=== PATIENT | male | born 1980 | race African-American/Black ===

== ENCOUNTER 2018-11-15 06:16 | Emergency (ER) | payer BC ==
[~2018-11-15] VITALS: Ht 193 cm; Wt 16.8 kg
[2018-11-15 06:19] VITALS: BP 160/107
[2018-11-15] MEDS ORDERED: IBUPROFEN 600 MG TABLET. PO ONE (07:00)
--- NOTE | 2018-11-15 13:51 | PHYS DOC ---
Past Medical History Past Medical History: No Pertinent History Past Surgical History: No Surgical History Alcohol Use: Occasionally Drug Use: Marijuana Adult General Chief Complaint Chief Complaint: FOOT INJURY PAIN HPI HPI Patient is a 37 year old -[place] male who presents with chronic right great toe pain is large onion.] Ago. Reports pain with ambulation. Symptoms been ongoing. No history of trauma. Patient has not been evaluated for these symptoms by primary care provider or wirer passenger car. [] Review of Systems Review of Systems Review symptoms as per history of present illness. All other review symptoms are negative. All other systems were reviewed and found to be within normal limits, except as documented in this note. Current Medications Current Medications Current Medications Medications (Trade) Dose Ordered Sig/Isamar Start Time Stop Time Status Last Admin Dose Admin Ibuprofen (Motrin) 600 mg 1X ONCE 11/15/18 07:00 11/15/18 07:00 DC 11/15/18 06:50 600 MG Allergies Allergies Allergies Coded Allergies Type Severity Reaction Last Updated Verified No Known Drug Allergies 11/15/18 No Physical Exam Physical Exam Constitutional: Well developed, well nourished, no acute distress, non-toxic appearance. [] HENT: Normocephalic, atraumatic, bilateral external ears normal, oropharynx moist, no oral exudates, nose normal. [] [] Extremities: Foot, no swelling, redness appreciated, valgus deformity to right great toe with painful/tender bunion. Walks with steady gait[] Neurologic: Alert and oriented X 3, normal motor function, normal sensory function, no focal deficits noted. [] Psychologic: Affect normal, judgement normal, mood normal. [] Current Patient Data Vital Signs Vital Signs Date Time Temp Pulse Resp B/P (MAP) Pulse Ox O2 Delivery O2 Flow Rate FiO2 11/15/18 06:19 98.7 91 18 160/107 (124) 99 Room Air 98.7 EKG EKG [] Radiology/Procedures Radiology/Procedures [] Course & Med Decision Making Course & Med Decision Making Pertinent Labs and Imaging studies reviewed. (See chart for details) [Chronic foot pain, walks with steady gait. Right great toe does not appear to be red, or hot. Courtesy work note offered. Recommendations are ibuprofen, and PCP/podiatry follow-up/evaluation] Lizy Disclaimer Lizy Disclaimer This electronic medical record was generated, in whole or in part, using a voice recognition dictation system. Departure Departure Impression: Primary Impression: Pain, foot, right, chronic Disposition: 01 HOME, SELF-CARE Condition: GOOD Referrals: NO PCP (PCP) NON,STAFF Patient Instructions: Bunion (Hallux Valgus)-SportsMed Additional Instructions: Take ibuprofen for pain with local primary care physician for podiatry (foot doctor) referral. NOLBERTO MELLO DO Nov 15, 2018 13:51
== END 2018-11-15 06:53 | disposition home or self-care (01) ==
LOC: ER 06:16
DX: G89.29 Other chronic pain (principal); M79.674 Pain in right toe(s)
CPT/HCPCS: 99282

== ENCOUNTER 2020-10-23 01:33 | Emergency (ER) | payer BC, OTHER ==
[~2020-10-23] VITALS: Ht 193 cm; Wt 140.1 kg
[2020-10-23] MEDS ORDERED: IV NORMAL SALINE 1000ML BAG 1,000 ML IV ONE (02:15)
--- NOTE | 2020-10-23 02:20 | ED.ADGEN ---
Past Medical History Past Medical History: No Pertinent History Past Surgical History: No Surgical History Smoking Status: Current Some Day Smoker Alcohol Use: Occasionally Drug Use: Marijuana General Adult EDM: Chief Complaint: FEVER HPI: HPI: Patient is a 39 year old male coming in for 5 days of cold symptoms. Complaining of headache, body aches, fever (T-max 102 at home), congestion, productive cough, vomiting, sore throat. Patient denies any sick contacts or new Covid exposures. Did not get his flu vaccine this year. Does not have any past medical history. Took Tamiflu 6-8 hours ago. Denies tobacco or alcohol use. Says he has had decreased appetite and p.o. intake. Review of Systems: Review of Systems: All other systems within normal limits except for as noted in the HPI Current Medications: Current Medications Medications (Trade) Dose Ordered Sig/Isamar Start Time Stop Time Status Last Admin Dose Admin Acetaminophen/ Codeine Phosphate (Tylenol #3) 1 tab 1X ONCE 10/23/20 05:00 10/23/20 05:01 DC 10/23/20 05:28 1 TAB Dexamethasone Sodium Phosphate (Decadron) 10 mg 1X ONCE 10/23/20 03:30 10/23/20 03:31 DC 10/23/20 03:45 10 MG Ketorolac Tromethamine (Toradol 15mg Vial) 15 mg 1X ONCE 10/23/20 02:30 10/23/20 02:31 DC 10/23/20 02:38 15 MG Ondansetron HCl (Zofran) 4 mg 1X ONCE 10/23/20 02:30 10/23/20 02:31 DC 10/23/20 02:38 4 MG Sodium Chloride 1,000 ml @ 1,000 mls/hr 1X ONCE 10/23/20 02:15 10/23/20 03:14 DC 10/23/20 02:38 1,000 MLS/HR Allergies: Allergies: Allergies Coded Allergies Type Severity Reaction Last Updated Verified No Known Drug Allergies 11/15/18 No Physical Exam: PE: Constitutional: Well developed, well nourished, no acute distress, non-toxic appearance. [] HENT: Normocephalic, atraumatic, bilateral external ears normal, nose normal. [] Eyes: PERRLA, conjunctiva normal, no discharge. [] Neck: No rigidity, supple, no stridor. [] Cardiovascular: Echocardiac, regular rhythm, brisk cap refill [] Lungs & Thorax: Non labored symmetric respirations, bilateral coarse breath sounds, worse on the right [] Abdomen: Soft, nondistended. Skin: Warm, dry, no erythema, no rash. [] Back: No tenderness, no CVA tenderness. [] Extremities: No deformities, range of motion grossly intact, no lower extremity edema [] Neurologic: Alert and oriented X 3, no focal deficits noted. [] Psychologic: Affect normal, judgement normal, mood normal. [] Current Patient Data: Labs: Laboratory Tests Test 10/23/20 02:05 10/23/20 02:24 10/23/20 02:25 White Blood Count 8.2 x10^3/uL (4.0-11.0) Red Blood Count 4.53 x10^6/uL (4.30-5.70) Hemoglobin 15.2 g/dL (13.0-17.5) Hematocrit 43.1 % (39.0-53.0) Mean Corpuscular Volume 95 fL (79-100) Mean Corpuscular Hemoglobin 34 pg (25-35) Mean Corpuscular Hemoglobin Concent 35 g/dL (31-37) Red Cell Distribution Width 12.7 % (11.5-14.5) Platelet Count 116 x10^3/uL (140-400) L Neutrophils (%) (Auto) 74 % (31-73) H Lymphocytes (%) (Auto) 17 % (24-48) L Monocytes (%) (Auto) 8 % (0-9) Eosinophils (%) (Auto) 0 % (0-3) Basophils (%) (Auto) 1 % (0-3) Neutrophils # (Auto) 6.1 x10^3/uL (1.8-7.7) Lymphocytes # (Auto) 1.4 x10^3/uL (1.0-4.8) Monocytes # (Auto) 0.7 x10^3/uL (0.0-1.1) Eosinophils # (Auto) 0.0 x10^3/uL (0.0-0.7) Basophils # (Auto) 0.1 x10^3/uL (0.0-0.2) D-Dimer (Katya) 0.39 ug/mlFEU (0.00-0.50) Sodium Level 134 mmol/L (136-145) L Potassium Level 3.9 mmol/L (3.5-5.1) Chloride Level 98 mmol/L (98-107) Carbon Dioxide Level 26 mmol/L (21-32) Anion Gap 10 (6-14) Blood Urea Nitrogen 14 mg/dL (8-26) Creatinine 1.4 mg/dL (0.7-1.3) H Estimated GFR (Cockcroft-Gault) 68.3 BUN/Creatinine Ratio 10 (6-20) Glucose Level 107 mg/dL (70-99) H Lactic Acid Level 0.7 mmol/L (0.4-2.0) Calcium Level 9.1 mg/dL (8.5-10.1) Total Bilirubin 0.8 mg/dL (0.2-1.0) Aspartate Amino Transferase (AST) 58 U/L (15-37) H Alanine Aminotransferase (ALT) 82 U/L (16-63) H Alkaline Phosphatase 37 U/L (46-116) L Troponin I Quantitative < 0.017 ng/mL (0.000-0.055) DO-Spv-G-Type Natriuretic Peptide 6 pg/mL (0-124) Total Protein 8.1 g/dL (6.4-8.2) Albumin 3.7 g/dL (3.4-5.0) Albumin/Globulin Ratio 0.8 (1.0-1.7) L Influenza Type A Antigen Negative (NEGATIVE) Influenza Type B Antigen Negative (NEGATIVE) Urine Collection Type Unknown Urine Color Yellow Urine Clarity Clear Urine pH 6.5 (<5.0-8.0) Urine Specific Lester 1.020 (1.000-1.030) Urine Protein 100 mg/dL (NEG-TRACE) Urine Glucose (UA) Negative mg/dL (NEG) Urine Ketones (Stick) Negative mg/dL (NEG) Urine Blood Negative (NEG) Urine Nitrite Negative (NEG) Urine Bilirubin Negative (NEG) Urine Urobilinogen Dipstick 1.0 mg/dL (0.2 mg/dL) Urine Leukocyte Esterase Negative (NEG) Urine RBC 0 /HPF (0-2) Urine WBC 0 /HPF (0-4) Urine Squamous Epithelial Cells Occ /LPF Urine Bacteria 0 /HPF (0-FEW) Laboratory Tests 10/23/20 02:05 Laboratory Tests 10/23/20 02:05 Vital Signs: Vital Signs Date Time Temp Pulse Resp B/P (MAP) Pulse Ox O2 Delivery O2 Flow Rate FiO2 10/23/20 05:28 95 10/23/20 05:19 82 22 161/79 (106) Room Air 10/23/20 02:49 10.0 10/23/20 01:35 99.7 99.7 EKG: EKG: Sinus tachycardia, heart rate 102 bpm, normal axis, no ST elevation reported, T waves unremarkable [] Heart Score: Risk Factors: Risk Factors: DM, Current or recent (<one month) smoker, HTN, HLP, family history of CAD, obesity. Risk Scores: Score 0 - 3: 2.5% MACE over next 6 weeks - Discharge Home Score 4 - 6: 20.3% MACE over next 6 weeks - Admit for Clinical Observation Score 7 - 10: 72.7% MACE over next 6 weeks - Early Invasive Strategies Radiology/Procedures: Radiology/Procedures: EP interpretation, no consolidation [] Course & Med Decision Making: Course & Med Decision Making Pertinent Labs and Imaging studies reviewed. (See chart for details) Patient with good O2 sats, improved with fluids. Discussed treatment for sinusitis. [] Dragon Disclaimer: Dragon Disclaimer: This electronic medical record was generated, in whole or in part, using a voice recognition dictation system. Departure Departure Impression: Primary Impression: Upper respiratory infection Disposition: 01 DC HOME SELF CARE/HOMELESS Condition: STABLE Referrals: NO PCP (PCP) Patient Instructions: Sinusitis Additional Instructions: You have been tested for or diagnosed with COVID-19. It is an infection caused by a new type of coronavirus. COVID-19 will cause cold-like or mild flu symptoms in most. It can cause more severe symptoms like problems breathing in some. There is no treatment for COVID-19. The body will clear the infection over time. Self-care will help to ease discomfort. Steps to Take: Self-Care Rest as needed. Healthy habits may help you feel better. Steps include: Choose healthy foods including fruits and vegetables. Drink water throughout the day. Get plenty of sleep each night. If you smoke, try to quit. It may ease breathing. Avoid alcohol. Keep Others Healthy The virus can spread to others. Droplets are released every time you sneeze or cough. The droplets can get into the mouth, nose, or eyes of people near you and lead to infection. To lower the chances of spreading COVID-19 to others: Stay at home until your doctor has said it is safe to leave. If you tested positive this will mean staying isolated until both of the following are true: At least 7 days have passed since the start of illness. You are free of fever for at least 72 hours without the use of medicine. During this time: - Avoid public areas, events, or transportation. Do not return to work or school until your doctor has said it is safe to do so. - Call ahead if you need to go to a medical center. Let them know you may have COVID-19. It will help them guide you where to go. They may also ask you to wear a facemask when you come to the office. - If you call for emergency medical services, let them know you may have COVID- 19. While at home: - Try to avoid close contact with others. Stay about 6 feet away. - If possible, spend most of your time in a separate room from others. - Use a face mask if you will be in close contact with others such as sharing a room or vehicle. - Have someone wipe down common surfaces in the home. Use household booth usher every day on areas like doorknobs, counters, or sinks. - Cough or sneeze into a tissue. Throw the tissue away right after use. If a tissue is not available, cough or sneeze into your elbow. - Wash your hands often. Wash them after sneezing or coughing. Use soap and water and wash for at least 20 seconds. Alcohol based hand street light lamp cleaner can be used if soap and water is not available. - Do not prepare food for others. Avoid sharing personal items like forks, spoons, or toothbrushes. - Avoid close contact with pets while you are sick. There is no evidence of the virus passing to pets. This is a safety step until more is known about this virus. Isolation can be frustrating. Social interaction can help. Keep in touch with friends and family through phone and tech options. You can still interact with others in your home, just keep a safe distance of about 6 feet. Follow-up: Your doctors office will check in with you to see if there are any changes in your health. You may be asked to keep track of symptoms to share with them. They will also let you know when you are clear to be in public again. Problems to Look Out For: Contact your doctor if your recovery is not going as you expect. Get emergency care if you have problems such as: - Trouble breathing - Nonstop chest pain or pressure - Changes in awareness, confusion, or problems waking - Lips or face have bluish color - Worsening of symptoms If you think you have an emergency, call for emergency medical services right away. As taken from [facility] Acetaminophen With Codeine (ACETAMINOPHEN-COD #3 TABLET) 1 Each Tablet 1 TAB PO PRN Q6HRS PRN for COUGH for 3 Days, #10 TAB Prov: SHERI ZHOU MD 10/23/20 Ondansetron (ONDANSETRON ODT) 4 Mg Tab.rapdis 1 TAB PO PRN Q6-8HRS PRN for NAUSEA for 3 Days, #16 TAB Prov: SHERI ZHOU MD 10/23/20 Doxycycline Hyclate (DOXYCYCLINE HYCLATE) 100 Mg Capsule 1 CAP PO BID for antibiotic for 7 Days, #14 CAP take with food Prov: SHERI ZHOU MD 10/23/20 SHERI ZHOU MD Oct 23, 2020 02:20
[2020-10-23 02:27] LABS: BASO # 0.1 x10^3/uL (0.0-0.2); BASO % 1 % (0-3); EOS % 0 % (0-3); HEMATOCRIT 43.1 % (39.0-53.0); HEMOGLOBIN 15.2 g/dL (13.0-17.5); LYMPH # 1.4 x10^3/uL (1.0-4.8); LYMPH % 17 % (24-48); MEAN CORPUSCULAR HEMOGLOBIN 34 pg (25-35); MEAN CORPUSCULAR HGB CONC 35 g/dL (31-37); MEAN CORPUSCULAR VOLUME 95 fL (79-100); MONO # 0.7 x10^3/uL (0.0-1.1); MONO % 8 % (0-9); NEUT # 6.1 x10^3/uL (1.8-7.7); NEUT % 74 % (31-73); PLATELET COUNT 116 x10^3/uL (140-400); RED BLOOD COUNT 4.53 x10^6/uL (4.30-5.70); RED CELL DISTRIBUTION WIDTH 12.7 % (11.5-14.5); WHITE BLOOD COUNT 8.2 x10^3/uL (4.0-11.0)
[2020-10-23] MEDS ORDERED: ONDANSETRON PF 4 MG/2 ML VIAL. IVP ONE (02:30)
[2020-10-23] MEDS ORDERED: KETOROLAC 15 MG/ML VIAL. IVP ONE (02:30)
[2020-10-23 02:35] LABS: BILIRUBIN,URINE NEGATIVE (NEG); CLARITY,URINE CLEAR; COLOR,URINE YELLOW; NITRITE,URINE NEGATIVE (NEG); PH,URINE 6.5 (<5.0-8.0); PROTEIN,URINE 100 mg/dL (NEG-TRACE)
[2020-10-23 02:37] LABS: CALCIUM 9.1 mg/dL (8.5-10.1); CREATININE 1.4 mg/dL (0.7-1.3); GFR 68.3; POTASSIUM 3.9 mmol/L (3.5-5.1)
[2020-10-23 02:41] LABS: BACTERIA,URINE 0 /HPF (0-FEW); RBC,URINE 0 /HPF (0-2); WBC,URINE 0 /HPF (0-4)
[2020-10-23 02:43] LABS: ALBUMIN 3.7 g/dL (3.4-5.0); ALBUMIN/GLOBULIN RATIO 0.8 (1.0-1.7); TOTAL BILIRUBIN 0.8 mg/dL (0.2-1.0); TOTAL PROTEIN 8.1 g/dL (6.4-8.2)
[2020-10-23 02:51] LABS: INFLUENZA A PATIENT NEGATIVE (NEGATIVE); INFLUENZA B PATIENT NEGATIVE (NEGATIVE)
[2020-10-23] MEDS ORDERED: DEXAMETHASONE SOD PHOS 20 MG/5 ML VIAL. IV ONE (03:30)
[2020-10-23] MEDS ORDERED: ACETAMINOPHEN/CODEINE 300/30MG TABLET. PO ONE (05:00)
[2020-10-23] MEDS ORDERED: ONDA4TAB12 PO (05:04)
[2020-10-23] MEDS ORDERED: DOXY100C2 PO (05:04)
[2020-10-23] MEDS ORDERED: ACET1TAB33 PO (05:04)
--- NOTE | 2020-10-23 05:09 | EKG ---
[facility] [address] [place] [address] Test Date: 2020-10-23 Test Time: 02:17:55 Pat Name: GHAZALA FAM Department: Room: Gender: M [employer]: : [id number] Requested By: SHERI ZHOU Order Number: [id number] Reading MD: Measurements Intervals [place] Rate: 102 P: 44 VA: 142 QRS: 28 QRSD: 98 T: 37 QT: 342 QTc: 450 Interpretive Statements SINUS TACHYCARDIA R-S TRANSITION ZONE IN V LEADS DISPLACED TO THE LEFT OTHERWISE NORMAL ECG RI6.01 No previous ECG available for comparison
[2020-10-23 05:19] VITALS: BP 161/79
--- NOTE | 2020-10-23 06:39 | RAD ---
INDICATION: Reason: hypoxic / Spl. Instructions: / History: COMPARISON: None. FINDINGS: Single view of the chest obtained Cardiac silhouette is enlarged. Mild interstitial prominence bilaterally with hypoexpansion. IMPRESSION: * Enlarged cardiac Silhouette which can be seen with cardiomegaly and/or pericardial effusion. * Hypoexpanded lungs with mild interstitial prominence. This could be secondary to vascular crowding from hypoexpansion but mild pulmonary vascular congestion or interstitial infiltrate is not excluded given the mild prominence Electronically signed by: Wilder Hendricks MD (10/23/2020 6:37 AM) [id number]
--- NOTE | 2020-10-24 15:20 | NUR ---
IP: Informed pt of positive COVID test and the need to quarantine for 10 days. Pt verbalized understanding.
== END 2020-10-23 05:30 | disposition home or self-care (01) ==
LOC: ER 01:33
DX: J06.9 Acute upper respiratory infection, unspecified (principal); Z20.828 Contact with and (suspected) exposure to other viral communicable diseases; R51.9 Headache, unspecified; R11.10 Vomiting, unspecified; R05 Cough; R09.81 Nasal congestion; F12.90 Cannabis use, unspecified, uncomplicated; Z87.891 Personal history of nicotine dependence
CPT/HCPCS: 36415; 71045; 80053; 81001; 83605; 83880; 84484; 85025; 85379; 87804; 93005; 96361; 96374; 96375; 99285; J1100; J1885; J2405; J7030; U0003

== ENCOUNTER 2020-11-05 15:52 | Emergency (ER) | payer OTHER ==
[~2020-11-05] VITALS: Ht 193 cm; Wt 131.8 kg
[~2020-11-05 15:52] MED LIST: ACET1TAB33 PO; DOXY100C2 PO; ONDA4TAB12 PO
[2020-11-05] MEDS ORDERED: methylPREDNISolone SOD SUCC PF 125 MG/2 ML VIAL. IV ONE (16:30)
[2020-11-05] MEDS ORDERED: ORPHENADRINE CITRATE 60 MG/2 ML VIAL. IM ONE (16:30)
[2020-11-05] MEDS ORDERED: KETOROLAC 30 MG/ML VIAL. IVP ONE (16:30)
--- NOTE | 2020-11-05 16:33 | PHYS DOC ---
Past Medical History Past Medical History: No Pertinent History (SAUL HDZ DO) Past Surgical History: No Surgical History (SAUL HDZ DO) Smoking Status: Former Smoker Alcohol Use: Occasionally Drug Use: Marijuana (SAUL HDZ DO) General Adult EDM: Chief Complaint: OTHER COMPLAINTS HPI: HPI: Patient is a 39 year old male who present to ER for evaluation of nonproductive cough, right shoulder pain, right neck pain for 3 days. Patient denies any injury. Patient right-sided neck is stiff, the pain radiated to the right shoulder, hurt when he moves his head. Patient denies any fever. Patient denies any trouble breathing, no left-sided chest pain. Patient complained of body ache and muscle ache. Patient was seen here about October 22 due to cough and fever, he was tested positive for COVID-19.. Patient has no history of coronary disease or blood clot disorder. Patient had no history of diabetic. (SAUL HDZ DO) Review of Systems: Review of Systems: Constitutional: Denies fever or chills. [] Eyes: Denies change in visual acuity. [] HENT: Denies nasal congestion or sore throat. [] Respiratory: Denies cough or shortness of breath. [] Cardiovascular: Denies chest pain or edema. [] GI: Denies abdominal pain, nausea, vomiting, bloody stools or diarrhea. [] : Denies dysuria. [] Musculoskeletal: Positive for right-sided neck pain, right shoulder pain, body ache and joint pain. Integument: Denies rash. [] Neurologic: Denies headache, focal weakness or sensory changes. [] Endocrine: Denies polyuria or polydipsia. [] Lymphatic: Denies swollen glands. [] Psychiatric: Denies depression or anxiety. [] (SAUL HDZ DO) Heart Score: Risk Factors: Risk Factors: DM, Current or recent (<one month) smoker, HTN, HLP, family history of CAD, obesity. Risk Scores: Score 0 - 3: 2.5% MACE over next 6 weeks - Discharge Home Score 4 - 6: 20.3% MACE over next 6 weeks - Admit for Clinical Observation Score 7 - 10: 72.7% MACE over next 6 weeks - Early Invasive Strategies (SAUL HDZ DO) Allergies: Allergies: Allergies Coded Allergies Type Severity Reaction Last Updated Verified No Known Drug Allergies 1/31/19 No (SAUL HDZ DO) Physical Exam: PE: Constitutional: Well developed, well nourished, no acute distress, non-toxic appearance. [] HENT: Normocephalic, atraumatic, bilateral external ears normal, oropharynx moist, no oral exudates, nose normal. [] Eyes: PERRLA, EOMI, conjunctiva normal, no discharge. [] Neck: Normal range of motion, no tenderness, supple, no stridor. [] Cardiovascular:Heart rate regular rhythm, no murmur [] Lungs & Thorax: Bilateral breath sounds clear to auscultation [] Abdomen: Bowel sounds normal, soft, no tenderness, no masses, no pulsatile masses. [] Skin: Warm, dry, no erythema, no rash. [] Back: No tenderness, no CVA tenderness. [] Extremities: No tenderness, no cyanosis, no clubbing, ROM intact, no edema. [] Neurologic: Alert and oriented X 3, normal motor function, normal sensory fun ction, no focal deficits noted. [] Psychologic: Affect normal, judgement normal, mood normal. [] (SAUL HDZ DO) Current Patient Data: Labs: Current Medications Medications (Trade) Dose Ordered Sig/Isamar Route PRN Reason Start Time Stop Time Status Last Admin Dose Admin Ketorolac Tromethamine (Toradol 30mg Vial) 30 mg 1X ONCE IVP 11/05/20 16:30 11/05/20 16:36 DC 11/05/20 17:26 Orphenadrine Citrate (Norflex) 60 mg 1X ONCE IM 11/05/20 16:30 11/05/20 16:36 DC 11/05/20 17:15 Methylprednisolone Sodium Succinate (SOLU-Medrol 125MG VIAL) 125 mg 1X ONCE IV 11/05/20 16:30 11/05/20 16:36 DC 11/05/20 17:28 (SAUL HDZ DO) EKG: EKG: EKG was done at 1708, heart rate of 80 bpm, sinus rhythm, no ST segment elevatio n. (SAUL HDZ DO) Radiology/Procedures: Radiology/Procedures: [] (SAUL HDZ DO) Radiology/Procedures: IMAGING REPORT Signed PATIENT: GHAZALA FAM ACCOUNT: [id number] : 1980 LOCATION: ER AGE: 39 SEX: M EXAM STATUS: REG ER ORD. PHYSICIAN: SAUL HDZ DO REASON: chest pain PROCEDURE: CHEST AP ONLY INDICATION: Reason: chest pain / Spl. Instructions: / History: COMPARISON: October 23, 2020 FINDINGS: Single view of chest obtained. Cardiomediastinal silhouette is similar to prior. There is again some mild interstitial prominence with some haziness at the left lung base which appears slightly increased. IMPRESSION: * Mild haziness at left lung base. This is a common location for atelectasis but early infiltrate is not excluded. Electronically signed by: Yaneth Luther MD (11/05/2020 5:58 PM) [id number] DICTATED and SIGNED BY: YANETH LUTHER MD DATE: 11/05/20 [id number] IMAGING REPORT Signed PATIENT: GHAZALA FAM ACCOUNT: [id number] : 1980 LOCATION: ER AGE: 39 SEX: M EXAM STATUS: REG ER ORD. PHYSICIAN: SAUL HDZ DO REASON: chest pain PROCEDURE: CERVICAL SPINE 2-3V INDICATION: Reason: chest pain / Spl. Instructions: / History: COMPARISON: None. IMPRESSION: Cervical spine: 4 views obtained. Mild degenerative changes with early osteophyte formation. No acute fracture or dislocation is seen. Electronically signed by: Yaneth Luther MD (11/05/2020 5:56 PM) [id number] DICTATED and SIGNED BY: YANETH LUTHER MD DATE: 11/05/20 [id number] (MARIELLE BECKMAN DO) Course & Med Decision Making: Course & Med Decision Making Pertinent Labs and Imaging studies reviewed. (See chart for details) Patient is a 39-year-old male who presented to ER for evaluation of body aches, flulike symptoms, neck pain, neck right-sided shoulder pain, patient care is being endorsed to incoming physician at shift change Dr. Beckman. (SAUL HDZ DO) Course & Med Decision Making COVID-19 CRITERIA: The patient was evaluated during the global COVID-19 pandemic, and that diagnosis was suspected/considered upon their initial presentation. Their evaluation, treatment and testing was consistent with current guidelines for patients who present with complaints or symptoms that may be related to COVID-19. A patient who complains of right paraspinal cervical pain and right trapezius pain, worsened when looking to the right or extending his right arm, consistent with torticollis versus musculoskeletal injury/spasm. CK mildly elevated on labs, normal renal function. Drug screen positive for marijuana. LFTS incr eased-could be covid related, has broad ddx. No leukopenia. I do not suspect patient's pain is related to Covid. Will DC home with NSAIDs and muscle relaxers, conservative management. Strict ED return precautions were given for stroke symptoms, neurologic deficits, dyspnea or chest pain. Encouraged urgent outpatient follow-up with PMD. Life-threatening processes were considered but are low suspicion at this time, given history, physical exam and ED workup. Pt was educated on all prescription medications and adverse effects. All patient's questions were answered and pt was stable at time of discharge. Life/limb-threatening differential includes but is not limited to, bandar's angina, peritonsillar abscess, retropharyngeal abscess, epiglottitis, bacterial tracheitis, uvulitis, sepsis, mastoiditis, traumatic injury, carotid/vertebral dissection, intracranial aneurysms or neurologic process. I spoken with the patient and her caregivers. I explained the patient's condition, diagnoses and treatment plan based on the information available to me at this time. I have answered the patient and her caregiver's questions and addressed any concerns. The patient and her caregivers have a good understanding of patient's diagnosis, condition and treatment plan as can be expected at this point. Vital signs have been stable. Patient's condition is stable and appropriate for discharge from the emergency department. Patient will pursue further outpatient evaluation with primary care physician or other designated or consulting physician as outlined in the discharge instructions. The patient and/or caregivers are agreeable to this plan of care and follow-up instructions have been explained in detail. The patient and/or caregivers have received these instructions in written form and have expressed an understanding of the discharge instructions. The patient and/or caregivers are aware that any significant change of condition or worsening of symptoms should prompt immediate return to this or the closest emergency department or call to 911. (VOMARIELLE MERCHANT DO) Lizy Disclaimer: Lizy Disclaimer: This electronic medical record was generated, in whole or in part, using a voice recognition dictation system. (SAUL HDZ DO) Departure Departure Impression: Primary Impression: COVID-19 virus infection Additional Impressions: Torticollis, acute Marijuana abuse Disposition: 01 DC HOME SELF CARE/HOMELESS Condition: STABLE Referrals: NO PCP (PCP) FOLLOW UP WITH FAMILY MEDICINE: In the next 10 days to establish care & repeat LFTs Family Medicine Address: [address] [place] [address], [facility] [address] [place] [address] Patient Instructions: Musculoskeletal Pain, Torticollis, Acute Additional Instructions: Return to ED immediately if your oxygen level drops below 90% (purchase a pulse oximetry at a medical supply store), difficulties breathing including rapid breathing or increased work of breathing (skin sucking under ribs), chest pain or stroke-like symptoms (facial droop, speech changes, arm/leg weakness). You have been tested for or diagnosed with COVID-19. It is an infection caused by a new type of coronavirus. COVID-19 will cause cold-like or mild flu symptoms in most. It can cause more severe symptoms like problems breathing in some. There is no treatment for COVID-19. The body will clear the infection over time. Self-care will help to ease discomfort. Steps to Take: Self-Care Rest as needed. Healthy habits may help you feel better. Steps include: Choose healthy foods including fruits and vegetables. Drink water throughout the day. Get plenty of sleep each night. If you smoke, try to quit. It may ease breathing. Avoid alcohol. Keep Others Healthy The virus can spread to others. Droplets are released every time you sneeze or cough. The droplets can get into the mouth, nose, or eyes of people near you and lead to infection. To lower the chances of spreading COVID-19 to others: Stay at home until your doctor has said it is safe to leave. If you tested positive this will mean staying isolated until both of the following are true: At least 7 days have passed since the start of illness. You are free of fever for at least 72 hours without the use of medicine. During this time: - Avoid public areas, events, or transportation. Do not return to work or school until your doctor has said it is safe to do so. - Call ahead if you need to go to a medical center. Let them know you may have COVID-19. It will help them guide you where to go. They may also ask you to wear a facemask when you come to the office. - If you call for emergency medical services, let them know you may have COVID- 19. While at home: - Try to avoid close contact with others. Stay about 6 feet away. - If possible, spend most of your time in a separate room from others. - Use a face mask if you will be in close contact with others such as sharing a room or vehicle. - Have someone wipe down common surfaces in the home. Use household air antisubmarine officer every day on areas like doorknobs, counters, or sinks. - Cough or sneeze into a tissue. Throw the tissue away right after use. If a tissue is not available, cough or sneeze into your elbow. - Wash your hands often. Wash them after sneezing or coughing. Use soap and water and wash for at least 20 seconds. Alcohol based hand smoking pipes cleaner can be used if soap and water is not available. - Do not prepare food for others. Avoid sharing personal items like forks, spoons, or toothbrushes. - Avoid close contact with pets while you are sick. There is no evidence of the virus passing to pets. This is a safety step until more is known about this virus. Isolation can be frustrating. Social interaction can help. Keep in touch with friends and family through phone and tech options. You can still interact with others in your home, just keep a safe distance of about 6 feet. Follow-up: Your doctors office will check in with you to see if there are any changes in your health. You may be asked to keep track of symptoms to share with them. They will also let you know when you are clear to be in public again. Problems to Look Out For: Contact your doctor if your recovery is not going as you expect. Get emergency care if you have problems such as: - Trouble breathing - Nonstop chest pain or pressure - Changes in awareness, confusion, or problems waking - Lips or face have bluish color - Worsening of symptoms If you think you have an emergency, call for emergency medical services right away. As taken from [facility] Scripts Ibuprofen (IBUPROFEN) 600 Mg Tablet 600 MG PO PRN Q6HRS PRN for PAIN, #20 TAB take with food or milk Prov: MARIELLE BECKMAN DO 11/05/20 Cyclobenzaprine Hcl (CYCLOBENZAPRINE HCL) 10 Mg Tablet 1 TAB PO TID, #21 TAB Prov: MARIELLE BECKMAN DO 11/05/20 SAUL HDZ DO Nov 05, 2020 16:33 MARIELLE BECKMAN DO Nov 05, 2020 18:18
[2020-11-05 17:56] LABS: BASO % 0 % (0-3); EOS # 0.1 x10^3/uL (0.0-0.7); EOS % 1 % (0-3); HEMATOCRIT 39.4 % (39.0-53.0); HEMOGLOBIN 13.4 g/dL (13.0-17.5); LYMPH # 2.2 x10^3/uL (1.0-4.8); LYMPH % 20 % (24-48); MEAN CORPUSCULAR HEMOGLOBIN 33 pg (25-35); MEAN CORPUSCULAR HGB CONC 34 g/dL (31-37); MEAN CORPUSCULAR VOLUME 96 fL (79-100); MONO # 0.8 x10^3/uL (0.0-1.1); MONO % 7 % (0-9); NEUT # 8.3 x10^3/uL (1.8-7.7); NEUT % 73 % (31-73); PLATELET COUNT 464 x10^3/uL (140-400); RED BLOOD COUNT 4.11 x10^6/uL (4.30-5.70); RED CELL DISTRIBUTION WIDTH 13.1 % (11.5-14.5); WHITE BLOOD COUNT 11.4 x10^3/uL (4.0-11.0)
--- NOTE | 2020-11-05 17:59 | RAD ---
INDICATION: Reason: chest pain / Spl. Instructions: / History: COMPARISON: None. IMPRESSION: Cervical spine: 4 views obtained. Mild degenerative changes with early osteophyte formation. No acute fracture or dislocation is seen. Electronically signed by: Wilder Hendricks MD (11/05/2020 5:56 PM) [id number]
--- NOTE | 2020-11-05 18:00 | RAD ---
INDICATION: Reason: chest pain / Spl. Instructions: / History: COMPARISON: October 23, 2020 FINDINGS: Single view of chest obtained. Cardiomediastinal silhouette is similar to prior. There is again some mild interstitial prominence with some haziness at the left lung base which appea rs slightly increased. IMPRESSION: * Mild haziness at left lung base. This is a common location for atelectasis but early infiltrate is not excluded. Electronically signed by: Wilder Hendricks MD (11/05/2020 5:58 PM) [id number]
[2020-11-05 18:03] LABS: CALCIUM 9.6 mg/dL (8.5-10.1); CREATININE 1.3 mg/dL (0.7-1.3); GFR 74.4; POTASSIUM 4.7 mmol/L (3.5-5.1)
[2020-11-05 18:09] LABS: ALBUMIN 3.3 g/dL (3.4-5.0); ALBUMIN/GLOBULIN RATIO 0.8 (1.0-1.7); MAGNESIUM 2.3 mg/dL (1.8-2.4); TOTAL BILIRUBIN 0.5 mg/dL (0.2-1.0); TOTAL PROTEIN 7.5 g/dL (6.4-8.2)
[2020-11-05 18:38] VITALS: BP 136/94
[2020-11-05 19:05] LABS: BARBITURATES NEG (NEG); BENZODIAZEPINES NEG (NEG); CANNABINOIDS POS (NEG); COCAINE NEG (NEG); METHADONE NEG (NEG); OPIATES NEG (NEG); PHENCYCLIDINE NEG (NEG)
[2020-11-05 19:09] LABS: AMPHETAMINE/METHAMPHETAMINE NEG (NEG)
[2020-11-05] MEDS ORDERED: diazePAM 5 MG TABLET PO ONE (19:15)
[2020-11-05] MEDS ORDERED: IBUP-1007 PO (20:06)
[2020-11-05] MEDS ORDERED: CYCL10TA2 PO (20:06)
--- NOTE | 2020-11-10 15:27 | EKG ---
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
== END 2020-11-05 20:37 | disposition home or self-care (01) ==
LOC: ER 15:52
DX: U07.1 COVID-19 (principal); M43.6 Torticollis; F12.90 Cannabis use, unspecified, uncomplicated; R05 Cough; M25.511 Pain in right shoulder; M54.2 Cervicalgia; Z87.891 Personal history of nicotine dependence
CPT/HCPCS: 36415; 71045; 72040; 80053; 80307; 82550; 83690; 83735; 83880; 84484; 85025; 96372; 96374; 96375; 99285; J1885; J2360; J2930; 93005

== ENCOUNTER 2020-11-07 10:13 | Emergency (ER) | payer OTHER ==
[~2020-11-07] VITALS: Ht 193 cm; Wt 139.7 kg
[~2020-11-07 10:13] MED LIST changes: +CYCL10TA2 PO; +IBUP-1007 PO
[2020-11-07] MEDS ORDERED: KETOROLAC 30 MG/ML VIAL. IV ONE (12:00)
[2020-11-07] MEDS ORDERED: HYDROmorphone 2 MG/ML VIAL IVP ONE (12:00)
[2020-11-07] MEDS ORDERED: ORPHENADRINE CITRATE 60 MG/2 ML VIAL. IV ONE (12:00)
[2020-11-07] MEDS ORDERED: methylPREDNISolone SOD SUCC PF 125 MG/2 ML VIAL. IV ONE (12:00)
--- NOTE | 2020-11-07 12:10 | ED.ADGEN ---
Past Medical History Past Medical History: Other Additional Past Medical Histor: COVID 19 Past Surgical History: No Surgical History Smoking Status: Never Smoker Alcohol Use: Occasionally Drug Use: Marijuana General Adult EDM: Chief Complaint: NECK PAIN HPI: HPI: Patient is a 39 year old AA male who present to ER for evaluation of continued R shoulder pain and R neck pain for about the last week. Patient denies any known injury, or heavy lifting. He reports that his neck feels stiff and that the pain shoots to the right shoulder, the pain increases when he moves his head. Patient denies any fever, numbness, tingling, weakness, shortness of breath, chest pain, palpitations, nausea, vomiting, or back pain. Patient reports that he tested positive for COVID 19 on 10/23/19 and has had myalgias and body aches since then. He denies any medical or surgical history, he denies any recent travel. He currently rates his pain a 10/10 on the pain scale, he has been taking the ibuprofen and flexeril as previously prescribe with no benefit from the medications. Review of Systems: Review of Systems: Complete ROS is negative unless otherwise noted in HPI. Current Medications: Current Medications Medications (Trade) Dose Ordered Sig/Isamar Start Time Stop Time Status Last Admin Dose Admin Acetaminophen/ Hydrocodone Bitart (Lortab 5/325) 1 tab 1X ONCE 11/07/20 15:15 11/07/20 15:16 DC 11/07/20 15:42 1 TAB Hydromorphone HCl (Dilaudid) 1 mg 1X ONCE 11/07/20 12:00 11/07/20 12:01 DC 11/07/20 12:19 1 MG Info (CONTRAST GIVEN -- Rx MONITORING) 1 each PRN DAILY PRN 11/07/20 14:30 11/07/20 16:21 DC Iohexol (Omnipaque 350 Mg/ml) 100 ml 1X ONCE 11/07/20 14:30 11/07/20 14:31 DC 11/07/20 14:53 100 ML Ketorolac Tromethamine (Toradol 30mg Vial) 30 mg 1X ONCE 11/07/20 12:00 11/07/20 12:01 DC 11/07/20 12:11 30 MG Methylprednisolone Sodium Succinate (SOLU-Medrol 125MG VIAL) 125 mg 1X ONCE 11/07/20 12:00 11/07/20 12:01 DC 11/07/20 12:05 125 MG Orphenadrine Citrate (Norflex) 60 mg 1X ONCE 11/07/20 12:00 11/07/20 12:01 DC 11/07/20 12:09 60 MG Sodium Chloride 1,000 ml @ 1,000 mls/hr 1X ONCE 11/07/20 13:00 11/07/20 13:59 DC 11/07/20 13:18 1,000 MLS/HR Allergies: Allergies: Allergies Coded Allergies Type Severity Reaction Last Updated Verified No Known Drug Allergies 11/07/20 No Physical Exam: PE: See Above Constitutional: Well developed, well nourished, no acute distress, non-toxic appearance, obese. [] HENT: Normocephalic, atraumatic, bilateral external ears normal, nose normal. [] Eyes: PERRLA, EOMI, conjunctiva normal, no discharge. [] Neck: Normal range of motion, no bony TTP, crepitus, step off, or obvious deformity; R cervical paraspinal TTP, no stridor. [] Cardiovascular:Heart rate regular rhythm Lungs & Thorax: Respirations even and unlabored, no retractions, no respiratory distress Skin: Warm, dry, no erythema, no rash. [] Extremities: No cyanosis, ROM intact, no edema. [] Neurologic: Alert and oriented X 3, no focal deficits noted. [] Psychologic: Affect normal, judgement normal, mood normal. [] Current Patient Data: Labs: Laboratory Tests Test 11/07/20 12:00 White Blood Count 9.2 x10^3/uL (4.0-11.0) Red Blood Count 3.96 x10^6/uL (4.30-5.70) L Hemoglobin 13.1 g/dL (13.0-17.5) Hematocrit 38.4 % (39.0-53.0) L Mean Corpuscular Volume 97 fL (79-100) Mean Corpuscular Hemoglobin 33 pg (25-35) Mean Corpuscular Hemoglobin Concent 34 g/dL (31-37) Red Cell Distribution Width 13.3 % (11.5-14.5) Platelet Count 391 x10^3/uL (140-400) Neutrophils (%) (Auto) 67 % (31-73) Lymphocytes (%) (Auto) 25 % (24-48) Monocytes (%) (Auto) 7 % (0-9) Eosinophils (%) (Auto) 0 % (0-3) Basophils (%) (Auto) 1 % (0-3) Neutrophils # (Auto) 6.2 x10^3/uL (1.8-7.7) Lymphocytes # (Auto) 2.3 x10^3/uL (1.0-4.8) Monocytes # (Auto) 0.7 x10^3/uL (0.0-1.1) Eosinophils # (Auto) 0.0 x10^3/uL (0.0-0.7) Basophils # (Auto) 0.1 x10^3/uL (0.0-0.2) D-Dimer (Katya) 0.93 ug/mlFEU (0.00-0.50) H Sodium Level 144 mmol/L (136-145) Potassium Level 4.3 mmol/L (3.5-5.1) Chloride Level 108 mmol/L (98-107) H Carbon Dioxide Level 28 mmol/L (21-32) Anion Gap 8 (6-14) Blood Urea Nitrogen 18 mg/dL (8-26) Creatinine 1.4 mg/dL (0.7-1.3) H Estimated GFR (Cockcroft-Gault) 68.3 BUN/Creatinine Ratio 13 (6-20) Glucose Level 97 mg/dL (70-99) Calcium Level 8.8 mg/dL (8.5-10.1) Total Bilirubin 0.4 mg/dL (0.2-1.0) Aspartate Amino Transferase (AST) 45 U/L (15-37) H Alanine Aminotransferase (ALT) 68 U/L (16-63) H Alkaline Phosphatase 49 U/L (46-116) Troponin I Quantitative < 0.017 ng/mL (0.000-0.055) Total Protein 7.3 g/dL (6.4-8.2) Albumin 3.0 g/dL (3.4-5.0) L Albumin/Globulin Ratio 0.7 (1.0-1.7) L Laboratory Tests 11/07/20 12:00 Laboratory Tests 11/07/20 12:00 Vital Signs: Vital Signs Date Time Temp Pulse Resp B/P (MAP) Pulse Ox O2 Delivery O2 Flow Rate FiO2 11/07/20 15:42 24 95 Room Air 11/07/20 15:39 71 148/73 (98) 11/07/20 10:57 98.4 98.4 EKG: EKG: [] Heart Score: Risk Factors: Risk Factors: DM, Current or recent (<one month) smoker, HTN, HLP, family history of CAD, obesity. Risk Scores: Score 0 - 3: 2.5% MACE over next 6 weeks - Discharge Home Score 4 - 6: 20.3% MACE over next 6 weeks - Admit for Clinical Observation Score 7 - 10: 72.7% MACE over next 6 weeks - Early Invasive Strategies Radiology/Procedures: Radiology/Procedures: PROCEDURE: CT ANGIOGRAPHY CHEST CTA chest with and without contrast 11/07/2020. Reason for exam: Right-sided pain. Elevated d-dimer. Recent Covid [address] infection. Helical thin section CT images were made through the chest using an infusion of 100 mL Omnipaque 350. Exposure: One or more of the following individualized dose reduction techniques were utilized for this examination: 1. Automated exposure control 2. Adjustment of the mA and/or kV according to patient size 3. Use of iterative reconstruction technique. Sagittal and coronal reconstructions were performed. FINDINGS: There are patchy bilateral opacities in the lungs. Infiltrates are seen in the left upper lobe and are mostly groundglass density. There is of infiltrate or atelectasis are seen posteriorly in the lower lobes, right greater than left. No other significant pulmonary parenchymal abnormality is seen. There is no apparent pleural fluid. The central airways appear normal. No enlarged lymph nodes are seen. Evaluation of the pulmonary arterial tree shows only modest degree of vessel opacification. This limits evaluation somewhat. No convincing abnormal filling defect is seen in the pulmonary artery branches. Smaller more peripheral emboli may be missed. Images through the upper abdomen show no significant abnormality. IMPRESSION: Vessel opacification is only modest, limiting evaluation of more peripheral arterial branches. There is no evidence of pulmonary embolism out through the medium-sized pulmonary artery branches. There are bilateral pulmonary opacities consistent with a history of Covid 19 infection. Electronically signed by: Cristopher Dial Jr., MD (11/07/2020 2:40 PM) [id number] PROCEDURE: CT CERVICAL SPINE WO CONTRAST CT cervical spine without contrast 11/07/2020. Reason for exam: Right-sided pain for one week without injury. Helical noncontrast images were performed. Sagittal and coronal reconstructions were obtained. Exposure: One or more of the following individualized dose reduction techniques were utilized for this examination: 1. Automated exposure control 2. Adjustment of the mA and/or kV according to patient size 3. Use of iterative reconstruction technique. Correlation is made with radiographs of 11/05/2020. FINDINGS: Alignment is normal. There is some artifact through the lower cervical spine likely related to patient body habitus. This slightly limits evaluation. There is no evidence of loss of vertebral body height or prevertebral soft tissu e swelling. No fracture line or destructive process is seen. Intervertebral discs appear fairly well maintained in height. Evaluation of the soft tissue components of the canal is limited without intrathecal contrast. No destructive process is seen. There is suggestion of some posterior ossified formation at C6- 7. IMPRESSION: No acute bony abnormality is seen. There are probably some degenerative changes present. Evaluation of the soft tissue components of the canal such as spinal cord and disc protrusions is significantly limited on noncontrast CT. If symptoms persist, MRI may be useful. Electronically signed by: Cristopher Dial Jr., MD (11/07/2020 1:00 PM) [id number] [] Course & Med Decision Making: Course & Med Decision Making Pertinent Labs and Imaging studies reviewed. (See chart for details) [] Lizy Disclaimer: Lizy Disclaimer: This electronic medical record was generated, in whole or in part, using a voice recognition dictation system. Departure Departure Impression: Primary Impression: Torticollis, acute Disposition: 01 DC HOME SELF CARE/HOMELESS Condition: STABLE Referrals: NO PCP (PCP) Patient Instructions: Torticollis, Acute Additional Instructions: Recommend application of ice or heat to sore areas as needed for discomfort. You might also try application of Biofreeze or icy hot. Stop taking the ibuprofen that was prescribed. Also stop taking the Flexeril that was previously prescribed. Fill the new prescriptions take them as directed. Follow-up with your primary care doctor next week, return to the ER symptoms worsen. Scripts Naproxen (NAPROXEN) 500 Mg Tablet 1 TAB PO BID PRN for PAIN for 10 Days, #20 TAB 0 Refills Prov: LIBRA ALVAREZ ROAD [employer]IGHT FIRER 11/07/20 Methocarbamol (ROBAXIN-750) 750 Mg Tablet 2 TAB PO TID PRN for PAIN for 7 Days, #42 TAB 0 Refills Prov: LIBRA ALVAREZ APRN 11/07/20 LIBRA ALVAREZ APRN Nov 07, 2020 12:10
[2020-11-07 12:22] LABS: BASO # 0.1 x10^3/uL (0.0-0.2); BASO % 1 % (0-3); EOS % 0 % (0-3); HEMATOCRIT 38.4 % (39.0-53.0); HEMOGLOBIN 13.1 g/dL (13.0-17.5); LYMPH # 2.3 x10^3/uL (1.0-4.8); LYMPH % 25 % (24-48); MEAN CORPUSCULAR HEMOGLOBIN 33 pg (25-35); MEAN CORPUSCULAR HGB CONC 34 g/dL (31-37); MEAN CORPUSCULAR VOLUME 97 fL (79-100); MONO # 0.7 x10^3/uL (0.0-1.1); MONO % 7 % (0-9); NEUT # 6.2 x10^3/uL (1.8-7.7); NEUT % 67 % (31-73); PLATELET COUNT 391 x10^3/uL (140-400); RED BLOOD COUNT 3.96 x10^6/uL (4.30-5.70); RED CELL DISTRIBUTION WIDTH 13.3 % (11.5-14.5); WHITE BLOOD COUNT 9.2 x10^3/uL (4.0-11.0)
[2020-11-07 12:29] LABS: CALCIUM 8.8 mg/dL (8.5-10.1); CREATININE 1.4 mg/dL (0.7-1.3); GFR 68.3; POTASSIUM 4.3 mmol/L (3.5-5.1)
[2020-11-07 12:35] LABS: ALBUMIN/GLOBULIN RATIO 0.7 (1.0-1.7); TOTAL BILIRUBIN 0.4 mg/dL (0.2-1.0); TOTAL PROTEIN 7.3 g/dL (6.4-8.2)
[2020-11-07] MEDS ORDERED: IV NORMAL SALINE 1000ML BAG 1,000 ML IV ONE (13:00)
--- NOTE | 2020-11-07 13:02 | RAD ---
CT cervical spine without contrast 11/07/2020. Reason for exam: Right-sided pain for one week without injury. Helical noncontrast images were performed. Sagittal and coronal reconstructions were obtained. Exposu re: One or more of the following individualized dose reduction techniques were utilized for this exam ination: 1. Automated exposure control 2. Adjustment of the mA and/or kV according to patient size 3. Use of iterative reconstruction technique. Correlation is made with radiographs of 11/05/2020. FINDINGS: Alignment is normal. There is some artifact through the lower cervical spine likely related to patient body habitus. This slightly limits evaluation. There is no evidence of loss of vertebral body height or prevertebral soft tissue swelling. No fracture line or destructive process is seen. In tervertebral discs appear fairly well maintained in height. Evaluation of the soft tissue components of the canal is limited without intrathecal contrast. No destructive process is seen. There is sugges tion of some posterior ossified formation at C6-7. IMPRESSION: No acute bony abnormality is seen. There are probably some degenerative changes present. Evaluation of the soft tissue components of the canal such as spinal cord and disc protrusions is sig nificantly limited on noncontrast CT. If symptoms persist, MRI may be useful. Electronically signed by: Cristopher Dial Jr., MD (11/07/2020 1:00 PM) [id number]
[2020-11-07] MEDS ORDERED: CONTRAST GIVEN. MC PRN (14:30)
[2020-11-07] MEDS ORDERED: IOHEXOL 350 MG/ML 100 ML VIAL. IV ONE (14:30)
--- NOTE | 2020-11-07 14:43 | RAD ---
CTA chest with and without contrast 11/07/2020. Reason for exam: Right-sided pain. Elevated d-dimer. Recent Covid [address] infection. Helical thin section CT images were made through the chest using an infusion of 100 mL Omnipaque 350. Exposure: One or more of the following individualized dose reduction techniques were utilized for th is examination: 1. Automated exposure control 2. Adjustment of the mA and/or kV according to patien t size 3. Use of iterative reconstruction technique. Sagittal and coronal reconstructions were perfo rmed. FINDINGS: There are patchy bilateral opacities in the lungs. Infiltrates are seen in the left upper l obe and are mostly groundglass density. There is of infiltrate or atelectasis are seen posteriorly in the lower lobes, right greater than left. No other significant pulmonary parenchymal abnormality is seen. There is no apparent pleural fluid. The central airways appear normal. No enlarged lymph nodes are seen. Evaluation of the pulmonary arterial tree shows only modest degree of vessel opacification. This limi ts evaluation somewhat. No convincing abnormal filling defect is seen in the pulmonary artery branche s. Smaller more peripheral emboli may be missed. Images through the upper abdomen show no significant abnormality. IMPRESSION: Vessel opacification is only modest, limiting evaluation of more peripheral arterial bran ches. There is no evidence of pulmonary embolism out through the medium-sized pulmonary artery branch es. There are bilateral pulmonary opacities consistent with a history of Covid 19 infection. Electronically signed by: Cristopher Dial Jr., MD (11/07/2020 2:40 PM) [id number]
[2020-11-07] MEDS ORDERED: METH-38 PO (15:10)
[2020-11-07] MEDS ORDERED: NAPR-514 PO (15:10)
[2020-11-07] MEDS ORDERED: HYDROcodone/APAP 5/325MG 1 TAB TABLET PO ONE (15:15)
[2020-11-07 15:39] VITALS: BP 148/73
--- NOTE | 2020-11-09 07:41 | EKG ---
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
== END 2020-11-07 15:47 | disposition home or self-care (01) ==
LOC: ER 10:13
DX: M43.6 Torticollis (principal); M25.511 Pain in right shoulder; M79.10 Myalgia, unspecified site
CPT/HCPCS: 36415; 71275; 72125; 80053; 84484; 85025; 85379; 93005; 96361; 96374; 96375; 99284; J1170; J1885; J2360; J2930; J7030; Q9967; 99282; 99283